=== PATIENT | female | born 1960 | race American Indian/Alaskan Native ===

== ENCOUNTER 2024-05-09 13:06 | Emergency (ER) | payer MEDICAID, SELFPAY ==
[2024-05-09 13:18] VITALS: BMI 22.8
[2024-05-09 13:25] VITALS: BP 180/90; PULSE 85; RESP 20; TEMP 37.1; O2SAT 100
--- NOTE | 2024-05-09 13:43 | PD.EDRME ---
Rapid Medical Screening Exam RME Arrival date/time: 05/09/24 13:06 63-year-old female with a history of rheumatoid arthritis presents to the emergency room with a chief complaint of right hand and arm tenderness and pain. I have greeted and performed a focused initial assessment of this patient. A comprehensive ED assessment and evaluation of the patient, analysis of all test results, and completion of the medical decision making process will be conducted by additional ED providers. Time Seen by Provider: 05/09/24 13:16 Vital signs: Vital Signs Temperature 98.7 F 05/09/24 13:25 Pulse Rate 85 05/09/24 13:25 Respiratory Rate 20 05/09/24 13:25 Blood Pressure 180/90 H 05/09/24 13:25 Pulse Oximetry (%) 100 05/09/24 13:25 Oxygen Delivery Method Room Air 05/09/24 13:25 Vital signs reviewed by provider: Yes
[2024-05-09] MEDS: predniSONE 20 MG TABLET 40 MG PO (13:50)
[2024-05-09] MEDS: KETOROLAC INJ 60 MG/2 ML VIAL 30 MG IM (13:51)
[2024-05-09 14:00] LABS: Basophils % (Auto) 0 % (0-2.5); Eosinophils # (Auto) 0.1 Thou/mm3 (0.0-0.5); Eosinophils % (Auto) 2 % (0-10); Hematocrit 36.9 % (36.0-46.0); Hemoglobin 12.9 g/dL (12.0-16.0); Immature Granulocytes % (Auto) 0 % (0-0); Immature Granulocytes Auto 0.01 Thou/mm3 (0.00-0.00); Lymphocytes # (Auto) 2.5 Thou/mm3 (1.0-4.8); Lymphocytes % (Auto) 44 % (10-50); Mean Corpuscular Hemoglobin 31.5 pg (25.0-35.0); Mean Corpuscular Volume 90 fL (80-100); Monocytes # (Auto) 0.7 Thou/mm3 (0.0-0.8); Monocytes % (Auto) 12 % (0-12); Neutrophils # (Auto) 2.3 Thou/mm3 (1.8-7.7); Neutrophils % (Auto) 41 % (37-80); Nucleated Red Blood Cell % 0 /100 WBC (0); Platelet Count 256 Thou/mm3 (140-440); RDW Standard Deviation 39.8 fL (36.4-46.3); White Blood Count 5.7 Thou/mm3 (3.6-11.0)
[2024-05-09 14:16] LABS: Partial Thromboplastin Time 28.1 Seconds (22.0-36.0); Prothrombin Time 11.4 Seconds (9.0-12.2)
[2024-05-09 14:20] LABS: Alanine Aminotransferase 130 U/L (10-49); Albumin, Serum 4.2 gm/dL (3.4-4.8); Albumin/Globulin Ratio 1.4 (1.2-2.2); Alkaline Phosphatase 85 U/L (46-116); Anion Gap 10 (7-16); Aspartate Amino Transferase 157 U/L (0-34); BUN/Creatinine Ratio 17 Ratio (12-20); Bilirubin,Total 0.5 mg/dL (0.3-1.2); Blood Urea Nitrogen 10 mg/dL (9-23); Carbon Dioxide 27.9 mMol/L (20.0-31.0); Chloride 100 mMol/L (98-107); Creatinine (Component) 0.6 mg/dL (0.6-1.3); Estimated Creatinine Clearance 75.9 mL/min (>60); Glucose 92 mg/dL (74-106); Osmolality,Calculated 274 (275-295); Sodium 138 mMol/L (136-145); Total Protein 7.2 gm/dL (5.7-8.2); Uric Acid 4.9 mg/dL (3.1-7.8); eGFR > 60 See Note
[2024-05-09 14:31] LABS: Calcium 6.7 mg/dL (8.3-10.6); Calcium (Corrected) 6.7 mg/dL (8.5-10.1)
[2024-05-09 15:53] LABS: Alanine Aminotransferase 130 U/L (10-49); Albumin, Serum 4.1 gm/dL (3.4-4.8); Albumin/Globulin Ratio 1.3 (1.2-2.2); Alkaline Phosphatase 85 U/L (46-116); Anion Gap 10 (7-16); Aspartate Amino Transferase 156 U/L (0-34); BUN/Creatinine Ratio 17 Ratio (12-20); Bilirubin,Total 0.5 mg/dL (0.3-1.2); Blood Urea Nitrogen 10 mg/dL (9-23); Calcium 6.9 mg/dL (8.3-10.6); Carbon Dioxide 28.7 mMol/L (20.0-31.0); Chloride 102 mMol/L (98-107); Creatinine (Component) 0.6 mg/dL (0.6-1.3); Estimated Creatinine Clearance 75.9 mL/min (>60); Globulin 3.1 gm/dL (2.3-3.5); Glucose 98 mg/dL (74-106); Osmolality,Calculated 280 (275-295); Potassium 2.8 mMol/L (3.4-5.1); Sodium 141 mMol/L (136-145); Total Protein 7.2 gm/dL (5.7-8.2); eGFR > 60 See Note
[2024-05-09 16:17] LABS: Calcium (Corrected) 6.9 mg/dL (8.5-10.1)
[2024-05-09 18:06] LABS: Collection Type, Urine Clean Catch
[2024-05-09 18:10] LABS: Bilirubin,Urine Negative (Negative); Blood,Urine 1+ (Negative); Clarity,Urine Clear (Clear/Hazy); Color,Urine Lt-Yellow (Lt Yel-Yel); Culture Indicated,Urine Not Indicated; Glucose, Urine Negative (Negative); Ketones,Urine Negative (Negative); Leukocyte Esterase,Urine Negative (Negative); Nitrite,Urine Negative (Negative); Protein,Urine Trace (Neg - Trace); RBC,Urine 7 /hpf (0-3); Specific Gravity,Urine 1.011 (1.001-1.035); Squamous Epithelial Cell,Urine < 1 /hpf (0-5); Urobilinogen,Urine Negative mg/dL (0.0-1.0); WBC,Urine < 1 /hpf (0-5)
[2024-05-09 18:34] VITALS: BP 143/114; PULSE 86; RESP 16; TEMP 36.4; O2SAT 96
[2024-05-09 19:10] LABS: Amphetamine/Methamp Scrn,U Positive (Negative); Barbiturate Screen,Urine Negative (Negative); Benzodiazepines Screen,Urine Negative (Negative); Benzoylecgonine Screen, Ur Negative (Negative); Fentanyl Screen,Urine Negative (Negative); Opiate Screen,Urine Negative (Negative); THC Screen,Urine Negative (Negative)
[2024-05-09 19:23] VITALS: BP 158/93; PULSE 89; RESP 17; TEMP 36.9; O2SAT 96
--- NOTE | 2024-05-09 19:35 | PC.NURSE ---
Dr. Watkins in room seeing pt.
--- NOTE | 2024-05-09 19:40 | PD.EDUPEX ---
Upper Extremity Injury RME/HPI General Chief Complaint: Extremity Injury, Upper Stated Complaint: RIGHT ARM PAIN Time Seen by Provider: 05/09/24 13:16 Arrival date/time: 05/09/24 13:06 RME / HPI RME / HPI narrative: 05/09/24 13:06 63-year-old female with a history of rheumatoid arthritis presents to the emergency room with a chief complaint of right hand and arm tenderness and pain. I have greeted and performed a focused initial assessment of this patient. A comprehensive ED assessment and evaluation of the patient, analysis of all test results, and completion of the medical decision making process will be conducted by additional ED providers. Dr. Watkins?s Main ED Evaluation: 63yo female with a history of RA presents to the ED for a chief complaint of pain and tingling throughout her extremities. Patient states she started having significant pain and tingling to her BUE last night, reporting it got significantly worse this morning. She states her hands were cramping up significantly (R>L) and was unable to tolerate the pain, so she came in for evaluation. Patient reports associated tingling to her BUE and BLE. She notes she's been grieving the loss of her son. She denies any other associated symptoms. Related Data Previous Rx's ?Medication ?Instructions ?Recorded famotidine 20 mg tablet 20 mg PO BID #14 tabs 05/20/19 hydroxyzine HCl 25 mg tablet See Rx Instructions .Route 05/20/19 .COMPLEX #30 tabs prednisone 20 mg tablet See Rx Instructions .Route QAM #19 05/20/19 tabs cyclobenzaprine 10 mg tablet 10 mg PO HS #10 tabs 02/13/23 Allergies Allergy/AdvReac Type Severity Reaction Status Date / Time aspirin Allergy Severe Abdominal Verified 02/13/23 08:36 Pain morphine Allergy Severe Hives Verified 02/13/23 08:36 Review of Systems Review of Systems Systems Reviewed: All systems reviewed, normal except as documented Past Medical History Past Medical History CARDIAC: Negative Congestive Heart Failure RESPIRATORY: Negative Chronic Obstructive Pulmonary Disease (COPD) GENITOURINARY: Negative Renal Disease ENDOCRINE: Negative Diabetes Mellitus Type 1 or Diabetes Mellitus Type 2 Surgical History SURGICAL: Positive Hysterectomy Social History SMOKING STATUS: Current some day smoker ED Exam Narrative Physical exam: GENERAL APPEARANCE: alert and oriented x 4, well-developed, well-nourished, no acute distress VITALS: All vitals were reviewed and the pulse ox is 96% on room air, which is normal according to my interpretation. HEENT: Normocephalic, atraumatic; pupils equal, round, reactive to light; EOMI; mucous membranes pink, moist; oropharynx clear NECK: Supple LUNGS: CTABL; no wheezes, no rales, no rhonchi HEART: Regular rate, regular rhythm; normal S1, S2; no murmurs ABDOMEN: non distended; normal BS; soft, no tenderness, no guarding, no rebound; no masses, no organomegaly, no hernia BACK: no CVA tenderness EXTREMITIES: atraumatic; no edema NEUROLOGIC: awake; alert and oriented x4; cranial nerves II-XII grossly intact; no focal sensory or motor deficits PSYCHIATRIC: appropriate mood and affect SKIN: warm, dry, normal color; no rashes Course Quality Measures none Orders Category Date Time Status EKG (ED ONLY) *Do not use* NOW Care 05/09/24 19:44 Completed IV [Insert IV] NOW Care 05/09/24 19:45 Active EKG (ED Only) Stat Exams 05/09/24 19:44 Draft Alcohol, Blood Medical Stat Lab 05/09/24 13:51 Completed CBC Stat Lab 05/09/24 13:51 Completed CMP [Comprehensive Metabolic Panel] Stat Lab 05/09/24 13:51 Completed CMP [Comprehensive Metabolic Panel] Stat Lab 05/09/24 15:15 Completed CMP [Comprehensive Metabolic Panel] Stat Lab 05/09/24 22:14 Completed Drug Screen,Urine Stat Lab 05/09/24 13:44 Completed PT [Prothrombin Time with INR] Stat Lab 05/09/24 13:51 Completed PTT [Partial Thromboplastin Time] Stat Lab 05/09/24 13:51 Completed UA, C/S IF [Urinalysis, C/S if Indicated] Stat Lab 05/09/24 18:00 Completed Uric Acid Stat Lab 05/09/24 13:51 Completed Calcium Gluc/Ns 1000MG Ivpb [Calcium Gluc/Ns 1000mg Med 05/09/24 21:58 Discontinued Ivpb] 1,000 mg in 50 ml IV X1 Calcium Gluconate 10% Inj Med 05/09/24 19:45 Discontinued 2 gm IV X1 ONE Diazepam Inj [Valium Inj] Med 05/09/24 19:44 Discontinued 5 mg IM X1 ONE Ketorolac Inj [Toradol Inj] Med 05/09/24 13:38 Discontinued 30 mg IM X1 ONE Magnesium Sulfate 2 GM Ivpb [Magnesium Sulfate Ivpb] Med 05/10/24 00:57 Ordered 2 gm in 50 ml IV X1 Potassium Chloride [K-Dur] Med 05/10/24 00:56 Once 40 meq PO X1 ONE predniSONE Med 05/09/24 13:41 Discontinued 40 mg PO X1 ONE Vital Signs Vital signs: Vital Signs Temperature 98.7 F 05/09/24 13:25 Pulse Rate 85 05/09/24 13:25 Respiratory Rate 20 05/09/24 13:25 Blood Pressure 180/90 H 05/09/24 13:25 Pulse Oximetry (%) 100 05/09/24 13:25 Oxygen Delivery Method Room Air 05/09/24 13:25 Extremity Injury MDM Narrative MDM Narrative:: Scribe Attestation: 05/09/24 Karly Butt am scribing for and in the presence of Dr. Watkins. Patient does not want to be admitted. We will do our best to treat her before she goes home. Patient data External records reviewed:: [facility] previous records (Per chart review, patient has no relevant previous ED visits.) Clinical information provided by:: patient Social determinants that could affect healthcare access:: none Patient has the following chronic illnesses:: none How is presenting disease/condition affected by chronic disease/condition?: no chronic disease Evaluation data The following diagnostics were reviewed and interpreted by me:: lab results and EKG tracing(s) Lab and/or radiology exams considered but not ordered:: none Interpretation Summary: CBC is normal, PT and INR are normal, PTT is normal, Potassium is low at 2.8, Calcium is low at 6.9, UA is unremarkable, UDS is positive for methamphetamines, Blood Alcohol is 61, according to my interpretation. Repeat CMP shows an improved calcium of 7.9. EKG done at 2053, NSR, rate of 70, normal axis, no ectopy, Q waves in V1 and V2, QTc: 463, QRS: 74, no STEMI, according to my interpretation. Medications / Prescriptions Medications or Prescriptions considered but not ordered:: none Medication administrations:: Medication Administration History Magnesium Sulfate (Magnesium Sulfate Ivpb) 2 gm in 50 mls @ 25 mls/hr IV X1 ONE Stop: 05/10/24 02:56 Potassium Chloride (Potassium Chloride 20 Meq Tabcr) 40 meq PO X1 ONE Stop: 05/10/24 00:57 Discontinued Medications Calcium Gluconate (Calcium Gluconate 10% Inj 1 Gm/10 Ml Vial) 2 gm IV X1 ONE Stop: 05/09/24 19:46 Last Admin: 05/09/24 20:29 Dose: 2 gm Documented By: LB Diazepam (Diazepam Inj 5 Mg/Ml Vial 2 Ml) 5 mg IM X1 ONE Stop: 05/09/24 19:45 Last Admin: 05/09/24 20:25 Dose: 5 mg Documented By: LB Calcium Gluconate/Sodium Chloride (Calcium Gluc/Ns 1000mg Ivpb) 1,000 mg in 50 mls @ 50 mls/hr IV X1 ONE Stop: 05/09/24 22:57 Last Infusion: 05/10/24 00:37 Dose: Infused Documented By: Admin: 05/09/24 23:37 Dose: 50 mls/hr Documented By: LB Ketorolac Tromethamine (Ketorolac Inj 60 Mg/2 Ml Vial) 30 mg IM X1 ONE Stop: 05/09/24 13:39 Last Admin: 05/09/24 13:51 Dose: 30 mg Documented By: Prednisone (Prednisone 20 Mg Tablet) 40 mg PO X1 ONE Stop: 05/09/24 13:42 Last Admin: 05/09/24 13:50 Dose: 40 mg Documented By: see above Consultations Consultation(s) initiated? (list below): No Diagnosis Upper Extremity Injury Differential Diagnosis: other (hyperventilation, grief reaction, hypocalcemia, hypomagnesemia) Most likely diagnosis given after review of the tests above:: see clinical impression below Admission Indicated Admission indicated?: not indicated Admission Request Was there a request for admission?: No Disposition Plan Disposition Plan: Discharge Discharge Attestation Discharge Attestation: The patient and all family members were given an opportunity to ask questions and understood the discharge instructions. Discharge instructions specifically effects, indications for sooner follow up or return to the emergency department, and the expected course of current diagnosis. Patient condition: Stable Discharge Plan Plan Patient Disposition: HOME (Self Care) Disposition Comment: Stable for discharge Patient condition on transfer: Stable Prescriptions/Referrals Prescriptions/Med Rec: No Action prednisone 20 mg tablet See Rx Instructions .Route QAM Qty: 19 0RF Rx Instructions: QAM; Take 60mg (3 tabs) PO QAM x 3 days, then 40mg (2 tabs) PO QAM x 3 days, then 20mg (1 tab) PO QAM x 4 days hydroxyzine HCl 25 mg tablet See Rx Instructions .Route .COMPLEX Qty: 30 0RF Rx Instructions: 1 tab PO Q6 hours prn itching famotidine 20 mg tablet 20 mg PO BID Qty: 14 0RF cyclobenzaprine 10 mg tablet 10 mg PO HS Qty: 10 0RF Referrals: Epifanio Pettit PA-C [Primary Care Provider] - In 1 week Problem List Clinical Impression: Hypocalcemia, Grief reaction Patient/Caregiver Discharge Instructions Discharge Activity: activity as tolerated Education Materials: ED Grief Reaction, ED Hypocalcemia (Adult) Additional Instructions: Please return to the emergency department if you have any worsening or any further medical problems and we will help you. Otherwise you should follow-up with your primary care doctor within the next several days. Print Language: Maori Stand Alone Forms: [employer] Award Info., Patient Portal Info Letter
--- NOTE | 2024-05-09 19:44 | EKG_ITS ---
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
--- NOTE | 2024-05-09 20:06 | PC.NURSE ---
Called pharmacy to verified meds
[2024-05-09] MEDS: DIAZEPAM INJ 5 MG/ML VIAL 2 ML IM (20:25)
[2024-05-09] MEDS: CALCIUM GLUCONATE 10% INJ 1 GM/10 ML VIAL 2 GM IV (20:29)
[2024-05-09 20:44] VITALS: BP 174/93; PULSE 72; RESP 18; O2SAT 92
[2024-05-09 22:31] VITALS: BP 144/78; PULSE 90; RESP 18; O2SAT 93
[2024-05-09 22:41] LABS: Alanine Aminotransferase 128 U/L (10-49); Albumin, Serum 4.1 gm/dL (3.4-4.8); Albumin/Globulin Ratio 1.3 (1.2-2.2); Alkaline Phosphatase 87 U/L (46-116); Anion Gap 12 (7-16); Aspartate Amino Transferase 143 U/L (0-34); BUN/Creatinine Ratio 18 Ratio (12-20); Bilirubin,Total 0.5 mg/dL (0.3-1.2); Blood Urea Nitrogen 11 mg/dL (9-23); Calcium 7.9 mg/dL (8.3-10.6); Calcium (Corrected) 7.9 mg/dL (8.5-10.1); Chloride 101 mMol/L (98-107); Creatinine (Component) 0.6 mg/dL (0.6-1.3); Estimated Creatinine Clearance 75.9 mL/min (>60); Globulin 3.1 gm/dL (2.3-3.5); Glucose 183 mg/dL (74-106); Osmolality,Calculated 285 (275-295); Potassium 2.9 mMol/L (3.4-5.1); Sodium 141 mMol/L (136-145); Total Protein 7.2 gm/dL (5.7-8.2); eGFR > 60 See Note
[2024-05-09 23:34] VITALS: BP 126/64; PULSE 90; RESP 18; TEMP 36.9; O2SAT 93
[2024-05-09] MEDS: CALCIUM GLUC/NS 1000MG IVPB 1,000 MG/50 ML BAG 50 MG IV (23:37)
[2024-05-10 00:59] VITALS: BP 127/79; PULSE 90; RESP 18; TEMP 36.6; O2SAT 96
[2024-05-10] MEDS: POTASSIUM CHLORIDE 20 mEq TABCR 40 MEQ PO (01:09)
[2024-05-10] MEDS: Magnesium Sulfate 2 GM Ivpb 2 GM/50 ML BAG IV (01:11)
[2024-05-10 02:33] VITALS: BP 133/80; PULSE 88; RESP 18; TEMP 36.6; O2SAT 99
== END 2024-05-10 02:35 | disposition home or self-care (01) ==
PROVIDERS: Emergency Medicine; Nurse Practitioner Family; Emergency Provider Emergency Medicine; PCP Physician Assistant
DX: E83.51 Hypocalcemia (principal); F43.20 Adjustment disorder, unspecified; M06.9 Rheumatoid arthritis, unspecified
CPT/HCPCS: 36415; 80053; 80307; 80320; 81001; 84550; 85025; 85610; 85730; 93005; 96365; 96366; 96367; 96372; 99284; J0612; J0613; J1885; J3360; J3475; J7512; A9270; G0480